=== PATIENT | male | born 1980 | race Asian ===

== ENCOUNTER 2021-02-03 01:38 | Emergency (ER) | payer OTHER ==
[~2021-02-03] VITALS: Ht 175.3 cm; Wt 73.5 kg
--- NOTE | 2021-02-03 02:05 | NUR ---
PT BIBS C/O R SCLERAL SWELLING. POSSIBLE BITTEN BY INSECT WHILE WALKING DOG. PT ALERT AND ORIENTED X3. AMBULATORY WITH NON LABORED BREATHING.
[2021-02-03] MEDS ORDERED: ERYT3.5O9 RIGHTEYE (02:41)
--- NOTE | 2021-02-03 02:46 | NUR ---
Patient discharged to home in stable condition. Written and verbal after care instructions given. Patient verbalizes understanding of instruction. RX given
[2021-02-03 02:47] VITALS: BP 130/80
== END 2021-02-03 02:47 | disposition home or self-care (01) ==
LOC: ER 01:45
DX: H11.421 Conjunctival edema, right eye (principal); H10.11 Acute atopic conjunctivitis, right eye; Z90.89 Acquired absence of other organs